=== PATIENT | male | born 1965 | race African-American/Black ===

== ENCOUNTER 2019-08-05 10:34 | Emergency (ER) | payer MEDICAID ==
[~2019-08-05] VITALS: Ht 188 cm; Wt 108.9 kg
[2019-08-05] MEDS ORDERED: SODIUM CHLORIDE 0.9% 1,000 ML IV ONE (12:54)
[2019-08-05] MEDS ORDERED: KETOROLAC TROMETH 30 MG/ML 1ML VIAL IV ONE (13:00)
[2019-08-05 13:20] LABS: Basophils # (auto) 0 uL; Basophils % (auto) 0.4 % (0.0-2.0); Eosinophils # (auto) 0 uL; Eosinophils % (auto) 1.5 % (0.0-7.0); Hematocrit 41.5 % (41.0-53.0); Hemoglobin 13.8 g/dL (13.5-17.5); Lymphocytes # (auto) 1.8 uL; Lymphocytes % (auto) 54.5 % (10.0-50.0); Mean Corpuscular Hgb Conc. 33.4 g/dL (32.0-36.0); Monocytes # (auto) 0.4 uL; Monocytes % (auto) 12.9 % (0.0-12.0); Neutrophils % (auto) 30.7 % (37.0-80.0); Nucleated Red Blood Cells % 0.2 %; Platelet Count (auto) 144 10^3/uL (140-450); Red Blood Cells 4.46 10^6/uL (4.5-5.90); Red Cell Distribution Width 13.4 % (11.8-14.3); White Blood Cell 3.4 10^3/uL (4.4-10.8)
[2019-08-05 13:34] LABS: Albumin 3.5 g/dL (3.4-5.0); Calcium 8.4 mg/dL (8.5-10.1); Potassium 4.7 mmol/L (3.5-5.1)
[2019-08-05 13:39] LABS: Bilirubin, Total 0.9 mg/dL (0.2-1.0); Total Protein 7.4 g/dL (6.4-8.2)
[2019-08-05] MEDS ORDERED: cloNIDine HCL 0.1 MG TAB PO ONE (13:45)
[2019-08-05 15:13] VITALS: BP 155/92
== END 2019-08-05 16:07 | disposition home or self-care (01) ==
LOC: EDBD 10:34 → ER 10:34
DX: S00.03XA Contusion of scalp, initial encounter (principal); I11.0 Hypertensive heart disease with heart failure; I50.9 Heart failure, unspecified; R41.82 Altered mental status, unspecified; W01.0XXA Fall on same level from slipping, tripping and stumbling without subsequent striking against object, initial encounter; Y93.E1 Activity, personal bathing and showering; Y92.091 Bathroom in other non-institutional residence as the place of occurrence of the external cause; Y99.8 Other external cause status
CPT/HCPCS: 36415; 70450; 80053; 82962; 83735; 84484; 85025; 93005; 96361; 96374; 99284; J1885; J7030

== ENCOUNTER 2019-09-01 14:29 | Emergency (ER) | payer MEDICAID ==
[~2019-09-01] VITALS: Ht 182.9 cm; Wt 99.8 kg
[2019-09-01 15:21] LABS: Hemoglobin 13.2 g/dL (13.5-17.5); Mean Corpuscular Hemoglobin 31.4 pg (28.0-32.0); Mean Corpuscular Hgb Conc. 33.9 g/dL (32.0-36.0); Mean Corpuscular Volume 92.7 fL (80.0-100.0); Platelet Count (auto) 203 10^3/uL (140-450); Red Cell Distribution Width 13.3 % (11.8-14.3); White Blood Cell 4.1 10^3/uL (4.4-10.8)
[2019-09-01 15:24] LABS: Band Neutrophils % (manual) 0; Basophils % (manual) 0 (0.0-2.0); Blast Cells 0; Eosinophils % (manual) 0 (0-7); Metamyelocytes % 0; Myelocytes % 0; Promyelocytes % 0; Reactive Lymphocytes 0
[2019-09-01 15:41] LABS: Albumin 3.4 g/dL (3.4-5.0); Calcium 8.7 mg/dL (8.5-10.1); Potassium 4.1 mmol/L (3.5-5.1)
[2019-09-01 15:48] LABS: Bilirubin, Total 0.5 mg/dL (0.2-1.0); Total Protein 7.6 g/dL (6.4-8.2)
[2019-09-01 15:58] LABS: Lymphocytes % (manual) 61 (10.0-50.0); Monocytes % (manual) 16 (0-12)
[2019-09-01] MEDS ORDERED: FUROSEMIDE 40 MG/4 ML VIAL IV ONE (17:15)
[2019-09-01] MEDS ORDERED: PROMETHAZINE W/CODEINE 5 ML ORAL SYRUP ONE (18:16)
[2019-09-01] MEDS ORDERED: PROMETHAZINE W/CODEINE 5 ML ORAL SYRUP PO ONE (18:30)
[2019-09-01 19:40] VITALS: BP 148/110
[2019-09-01] MEDS ORDERED: HYDROcodone-ACET 10/325MG TAB PO ONE (20:15)
[2019-09-01] MEDS ORDERED: cloNIDine HCL 0.1 MG TAB PO ONE (20:15)
== END 2019-09-01 20:51 | disposition home or self-care (01) ==
LOC: ER 14:35
DX: R05 Cough (principal); I11.0 Hypertensive heart disease with heart failure; I50.9 Heart failure, unspecified
CPT/HCPCS: 36415; 71045; 80053; 83880; 84484; 85007; 85027; 93005; 96374; 99284; J1940